=== PATIENT | female | born 1955 | race Caucasian/White ===

== ENCOUNTER → 2019-02-05 07:36 | Outpatient (CLI) | payer OTHER, SELFPAY ==
--- NOTE | 2019-02-05 08:46 | PM.TREADMILL ---
Cardiac Stress Test Report Referral & Results Date Patient Seen: 02/05/19 Time Patient Seen: 08:30 Requesting provider: Remedios Wilson Indication: Family history of CAD Rest ECG: NSR Procedure Note: Today following both written and verbal informed consent, the patient was exercised according to a standard Fazal protocol. The patient exercised for a total of 9 minutes 15 seconds achieving a maximum heart rate of 147. Patient's maximum systolic blood pressure was 180. This was an estimated 10.1 METs. No change in rhythm. No signs or symptoms of angina. Minimal ST deviations. JOSE DANIEL-25% on active scale Impression: Low probability for ischemia. Estrada treadmill score of 6 predicts 97% survival over 5 years. Please note: Actual ECG tracings can be found in the PACS system.
== END ==
PROVIDERS: PCP Family Medicine; Visit Provider Family Medicine
DX: Z82.49 Family history of ischemic heart disease and other diseases of the circulatory system (principal)
CPT/HCPCS: 93016; 93017; 93018